=== PATIENT | male | born 1995 | race Caucasian/White ===

== ENCOUNTER 2020-12-03 00:55 | Emergency (ER) | payer OTHER ==
[~2020-12-03] VITALS: Ht 185.4 cm; Wt 77.3 kg
[2020-12-03 01:10] VITALS: TEMP 97.4
[2020-12-03] MEDS ORDERED: NAPROSYN500 MG PO (02:07)
[2020-12-03] MEDS ORDERED: FLEXERIL 1010 MG/TAB PO (02:07)
[2020-12-03 02:45] VITALS: BP 155/92; PULSE 89
== END 2020-12-03 02:45 | disposition home or self-care (01) ==
LOC: COL.ER 00:55
DX: M62.838 Other muscle spasm (principal); M54.14 Radiculopathy, thoracic region